=== PATIENT | female | born 1960 | race Two or more races ===

== ENCOUNTER 2024-05-24 06:33 | Day surgery (SDC) | payer BC, SELFPAY ==
[2024-05-09 08:35] LABS: % Basophils 0.4 % (0-2); % Eosinophils 3.3 % (0-6); % Immature Granulocytes 0.4 % (0-0.5); % Lymphocytes 32.8 % (20.5-51.1); % Monocytes 7.2 % (1.7-9.3); % Neutrophils 55.9 % (42.2-75.2); Absolute Eosinophils 0.2 10^3/uL (0-0.7); Absolute Lymphocytes 2.4 10^3/uL (1.2-3.4); Absolute Monocytes 0.5 10^3/uL (0.1-0.6); Absolute Neutrophils 4.1 10^3/uL (1.4-6.5); Hemoglobin 13.8 g/dL (12.0-16.0); Mean Corp Hgb Conc. 32.1 g/dL (33.0-37.0); Mean Corpuscular Hgb 30.3 pg (27.0-31.0); Mean Corpuscular Volume 94.3 fL (81.0-99.0); Mean Platelet Volume 9.4 fL (7.4-10.4); Nucleated Red Blood Cells % 0 %; Platelet Count 336 10^3/uL (130-400); Red Blood Cell Count 4.56 10^6/uL (4.20-5.40); Red Cell Dist. Width 13.1 % (11.5-14.5); White Blood Cell Count 7.4 10^3/uL (4.8-10.8)
[2024-05-09 09:26] LABS: Blood Urea Nitrogen 16 mg/dl (7-17); Calcium 10.2 mg/dl (8.4-10.2); Carbon Dioxide 32 mmol/L (22-30); Chloride 102 mmol/L (98-107); Glucose 101 mg/dl (70-99); Potassium 4.2 mmol/L (3.5-5.1); Sodium 142 mmol/L (135-145); eGFR > 60.00
[2024-05-09 12:51] VITALS: BMI 34.4
[2024-05-24] VITALS (7 sets, daily range): BP systolic 126–161; BP diastolic 55–78; BMI 34.4
--- NOTE | 2024-05-24 10:13 | PTCARENOTE ---
Anesthesia and also surgeon made aware that patient rates high as DVT risk.
--- NOTE | 2024-05-24 10:17 | PTCARENOTE ---
Patient states that preadmissions told her to take Tylenol this am prior to arrival. Patient took 1000 mg PO at 0800. Dose held that was ordered by Dr. Awan in pre-op. Will monitor patient.
[2024-05-24] MEDS: CELEBREX 200 MG PO (10:23)
[2024-05-24] MEDS: TYLENOL 650 MG PO (13:17)
== END 2024-05-24 14:18 | disposition home or self-care (01) ==
LOC: SDS 06:33
PROVIDERS: ATTENDING PHYSICIAN Specialist; FAMILY PHYSICIAN Internal Medicine
DX: S83.231A Complex tear of medial meniscus, current injury, right knee, initial encounter (principal); S83.281A Other tear of lateral meniscus, current injury, right knee, initial encounter; X58.XXXA Exposure to other specified factors, initial encounter; M94.261 Chondromalacia, right knee
CPT/HCPCS: 29880; 36415; 80048; 85025; 93005

== ENCOUNTER 2024-08-04 17:05 | Emergency (ER) | payer BC, SELFPAY ==
[2024-08-04 17:16] VITALS: BP 140/73
[2024-08-04 17:42] LABS: % Basophils 0.1 % (0-2); % Eosinophils 0.1 % (0-6); % Immature Granulocytes 0.1 % (0-0.5); % Lymphocytes 5.4 % (20.5-51.1); % Monocytes 7.9 % (1.7-9.3); % Neutrophils 86.4 % (42.2-75.2); Absolute Lymphocytes 0.4 10^3/uL (1.2-3.4); Absolute Monocytes 0.5 10^3/uL (0.1-0.6); Absolute Neutrophils 5.8 10^3/uL (1.4-6.5); Hematocrit 38.3 % (37.0-47.0); Hemoglobin 13.1 g/dL (12.0-16.0); Mean Corp Hgb Conc. 34.2 g/dL (33.0-37.0); Mean Corpuscular Hgb 30.8 pg (27.0-31.0); Mean Corpuscular Volume 90.1 fL (81.0-99.0); Mean Platelet Volume 9.5 fL (7.4-10.4); Nucleated Red Blood Cells % 0 %; Platelet Count 263 10^3/uL (130-400); Red Blood Cell Count 4.25 10^6/uL (4.20-5.40); Red Cell Dist. Width 13.3 % (11.5-14.5); White Blood Cell Count 6.7 10^3/uL (4.8-10.8)
[2024-08-04 17:57] LABS: ALT (SGPT) 35 U/L (0-35); AST (SGOT) 43 U/L (14-36); Albumin 4.3 g/dl (3.5-5.0); Alkaline Phosphatase 86 U/L (38-126); Blood Urea Nitrogen 10 mg/dl (7-17); Calcium 9.8 mg/dl (8.4-10.2); Carbon Dioxide 30 mmol/L (22-30); Chloride 98 mmol/L (98-107); Glucose 120 mg/dl (70-99); Potassium 3.6 mmol/L (3.5-5.1); Sodium 135 mmol/L (135-145); Total Bilirubin 0.9 mg/dl (0.2-1.3); Total Protein 6.9 g/dl (6.3-8.2); eGFR > 60.00
[2024-08-04 18:07] LABS: COVID-19 Antigen Negative (Negative)
[2024-08-04 18:51] VITALS: BMI 36.6
--- NOTE | 2024-08-04 18:51 | ED.GENMED ---
History of Present Illness
General
Chief Complaint: Cold/Flu/URI Symptoms
Time Seen by Provider: 08/04/24 18:29
History of Present Illness
History of Present Illness:
63-year-old female presents the emergency room complaining of fever, chills, body aches. She also has a sore throat and a cough. No significant shortness of breath. Patient did not receive a flu vaccine this year.
Phy Exam
Physical Exam
Physical Exam:
General: Awake, Alert, Oriented X3. No acute distress.
Vitals: Febrile
Head: Atraumatic
Eyes: Pupils equal, EOMI
Throat: Airway intact, no exudates
Neck: Trachea midline
Lungs: Clear and equal b/l
Heart: Regular rate, no murmurs
Abd: Soft, Nontender, No pulsatile mass
Neuro: Nonfocal
Skin: Warm, dry, no rash
Extremities: pulses equal b/l, no edema
Sepsis
Sepsis Screening
Sepsis Assessment: Sepsis Ruled Out
Sepsis Screen
Sepsis Screen: Sepsis Ruled Out
Date: 08/05/24
Time: 02:00
Course
Orders/Labs/Results
Orders:
Orders
08/04/24 17:19
Chest [CR Chest - 2 Views ] Urgent
Comment:
Reason For Exam: cough, fever
08/04/24 17:35
COVID-19 Antigen Urgent
Source: Nasal Swab
Complete Blood Count/With Diff Urgent
Comprehensive Metabolic Panel Urgent
Influenza A+B Rapid Molecular Urgent
OFELIA Source: Nasal Swab
Specimen Description:
08/04/24 18:51
Acetaminophen [Tylenol] 1,000 mg PO NOW STA
Abnormal Lab Results
08/04/24
17:35
Absolute Lymphs (auto) 0.4 L 10^3/uL
(1.2-3.4)
Neutrophils % 86.4 H %
(42.2-75.2)
Lymphocytes % 5.4 L %
(20.5-51.1)
Glucose 120 H mg/dl
(70-99)
AST 43 H U/L
(14-36)
08/04/24 17:35
08/04/24 17:35
Vital Signs
Initial and Last Documented VS:
Initial Vital Signs
Temp Pulse Resp BP Pulse Ox
102.4 F H 111 18 140/73 94
08/04/24 17:16 08/04/24 17:16 08/04/24 17:16 08/04/24 17:16 08/04/24 17:16
Last Documented Vital Signs
Temp Pulse Resp BP Pulse Ox
102.4 F H 98 18 142/55 97
08/04/24 17:16 08/04/24 18:52 08/04/24 18:52 08/04/24 18:52 08/04/24 18:52
MDM/Problems Addressed
Differential Diagnosis Includes:
COVID, flu, pneumonia
MDM/Problems Addressed:
Patient's influenza test is positive. The remainder of her workup is reassuring. Supportive care for influenza
*Radiology
Radiology exam reviewed: preliminary read by ED provider (No acute abnormalities based on my review of the patient's chest x-ray)
*Pulse Oximetry
Patient hypoxic: no
*Critical Care Note
Total Time (30-74mins, 75-104mins- exclusive of procedures): Not Applicable
ED Attending Note
-
Portions of this chart may have been created with voice recognition software.� Occasional wrong word or��sound alike� substitutions may have occurred due to the inherent limitations of voice recognition software.
Discharge Plan
Departure
Patient Disposition: Home (Routine Discharge)
Date of Disposition: 08/04/24
Time of Disposition: 18:51
Patient with high blood pressure during this ER visit?: Yes
Condition: Good
Discharge Problem:
Influenza A
Instructions: Flu in adults - ED discharge instructions, BLOOD PRESSURE
Prescriptions:
No Action
acetaminophen [Tylenol] 325 mg Tablet
325 - 650 mg PO Q6H PRN (Reason: pain)
cetirizine [Zyrtec] 10 mg Tablet
10 mg PO HS
famotidine [Pepcid] 20 mg Tablet
20 mg PO PRN PRN (Reason: GERD)
lisinopril 30 mg Tablet
30 mg PO NOON
hydrochlorothiazide 25 mg Tablet
25 mg PO NOON
ibuprofen-acetaminophen [Motrin Dual Action W-Tylenol] 125-250 mg Tablet
1 tab PO Q8H PRN (Reason: pain)
Interventions
Interventions:
*Risk Screen - Suicide Last Done: 08/04/24 17:16
*General Assessment Last Done: 08/04/24 17:16
*Neglect/Abuse Screening Last Done: 08/04/24 18:49
ED- Fall Risk Assessment Last Done: 08/04/24 19:06
*ED COVID-19 Vaccine History Last Done: 08/04/24 17:16
*Nursing Disposition Last Done: 08/04/24 19:06
ED- Pulmonary Assessment Last Done: 08/04/24 18:49
Discharge Date and Time
Discharge Date/Time: 08/04/24 19:07
Print Language: SPANISH
[2024-08-04 18:52] VITALS: BP 142/55
[2024-08-04] MEDS: TYLENOL 1000 MG PO (19:02)
== END 2024-08-04 19:07 | disposition home or self-care (01) ==
LOC: EMR 17:05
PROVIDERS: Emergency Medicine; EMERGENCY PHYSICIAN Emergency Medicine; FAMILY PHYSICIAN Internal Medicine
DX: J10.1 Influenza due to other identified influenza virus with other respiratory manifestations (principal); R03.0 Elevated blood-pressure reading, without diagnosis of hypertension; Z11.52 Encounter for screening for COVID-19
CPT/HCPCS: 99284; 71046; 80053; 85025; 87502; 87811

== ENCOUNTER → 2024-09-02 11:44 | Outpatient (REF) | payer BC, SELFPAY ==
[2024-09-02 12:46] LABS: % Basophils 0.6 % (0-2); % Immature Granulocytes 0.3 % (0-0.5); % Lymphocytes 31.9 % (20.5-51.1); % Monocytes 6.9 % (1.7-9.3); % Neutrophils 55.3 % (42.2-75.2); Absolute Basophils 0.1 10^3/uL (0-0.2); Absolute Eosinophils 0.4 10^3/uL (0-0.7); Absolute Lymphocytes 2.5 10^3/uL (1.2-3.4); Absolute Monocytes 0.5 10^3/uL (0.1-0.6); Absolute Neutrophils 4.3 10^3/uL (1.4-6.5); Hematocrit 40.4 % (37.0-47.0); Hemoglobin 13.5 g/dL (12.0-16.0); Mean Corp Hgb Conc. 33.4 g/dL (33.0-37.0); Mean Corpuscular Hgb 30.3 pg (27.0-31.0); Mean Corpuscular Volume 90.6 fL (81.0-99.0); Nucleated Red Blood Cells % 0 %; Platelet Count 332 10^3/uL (130-400); Red Blood Cell Count 4.46 10^6/uL (4.20-5.40); Red Cell Dist. Width 13.2 % (11.5-14.5); White Blood Cell Count 7.8 10^3/uL (4.8-10.8)
[2024-09-02 13:40] LABS: Blood Urea Nitrogen 15 mg/dl (7-17); Calcium 10.4 mg/dl (8.4-10.2); Carbon Dioxide 29 mmol/L (22-30); Chloride 100 mmol/L (98-107); Glucose 126 mg/dl (70-99); Potassium 4.1 mmol/L (3.5-5.1); Sodium 139 mmol/L (135-145); eGFR > 60.00
== END ==
LOC: RCS 11:44
PROVIDERS: ATTENDING PHYSICIAN Specialist
DX: Z01.818 Encounter for other preprocedural examination (principal)
CPT/HCPCS: 36415; 80048; 85025